=== PATIENT | female | born 1990 | race Caucasian/White ===

== ENCOUNTER 2021-02-03 15:56 | Emergency (ER) | payer OTHER, SELFPAY ==
[2021-02-03] VITALS (20 sets, daily range): BP systolic 119–155; BP diastolic 68–112; PULSE 95–125; RESP 10–23; TEMP 36.2; O2SAT 93–100
--- NOTE | ~2021-02-03 | CT_ITS ---
EXAMINATION: CTA chest PE protocol DATE: 02/03/2021 20:30 INDICATION: Chest pain. Tachycardia. Dyspnea. TECHNIQUE: Computed tomography angiography (CTA) of the chest was performed with 100 mL Omnipaque-350 intravenous contrast timed to evaluate the pulmonary arteries. Coronal maximum intensity projection 3D-reconstructions were created by the technologist. Automated exposure control and iterative reconst ruction technique were employed. Exam dose: 406.72 mGy-cm total exam DLP. COMPARISON: 02/03/2021 2 view chest FINDINGS: There is moderate opacification the pulmonary arteries and no evidence of pulmonary embolis m. No thoracic aortic aneurysm or dissection. No hilar or mediastinal mass lesion or lymphadenopathy. Normal heart size. No pericardial or pleural effusion. Approximately 4.5 mm nodule in the middle lobe (series 4 image 52). No other pulmonary mass lesion is noted. No pulmonary infiltrate or consolidation. Small sliding hiatal hernia. Diffuse hepatic steatosis. Normal morphology of the adrenal glands. IMPRESSION: No evidence of pulmonary embolism Nonspecific 4.5 mm middle lobe nodule Diffuse hepatic steatosis Small sliding hiatal hernia Reviewed, dictated and finalized at [facility]. Reviewed, dictated and finalized at [facility].
--- NOTE | ~2021-02-03 | XR_ITS ---
XR chest 2V DATE: 02/03/2021 18:02 INDICATION: Mid chest pain radiating to left side TECHNIQUE: PA and lateral views COMPARISON: 11/19/2018 two-view chest FINDINGS: Normal heart size. No hilar or mediastinal enlargement. No pulmonary infiltrate or consolid ation, pleural effusion or pulmonary vascular congestion or pneumothorax. IMPRESSION: No active cardiopulmonary disease Reviewed, dictated and finalized at [facility].
--- NOTE | 2021-02-03 17:10 | ECG_ITS ---
Measurements Intervals [place] Rate: 127 P: 66 IA: 155 QRS: 64 QRSD: 85 T: 29 QT: 335 QTc: 488 Interpretive Statements SINUS TACHYCARDIA NONSPECIFIC ST & T-WAVE ABNORMALITY- ANT/INF LEADS BASELINE ARTIFACT- I ABNORMAL ECG Electronically Signed On 02-03-2021 20:15:23 CDT by Meng Douglass D.O.
[2021-02-03 17:21] LABS: Basophils Percent Auto 0.3 % (0.2-1.2); Eosinophils Absolute Auto 0.2 K/mm3 (0-0.3); Eosinophils Percent Auto 1.4 % (0-4.4); Hematocrit 45.2 % (37.0-47.0); Hemoglobin 15.2 g/dL (12.0-15.0); Immature Granulocyte Absolute 0.04 K/mm3 (0.00-0.031); Immature Granulocyte Percent A 0.3 % (0-0.5); Lymphocytes Absolute Auto 3.27 K/mm3 (0.9-3.2); Lymphocytes Percent Auto 26.1 % (18.3-44.2); Mean Corpuscular HGB Conc 33.6 g/dl (32-36); Mean Corpuscular Hemoglobin 32.4 pg (26-34); Mean Corpuscular Volume 96.4 fl (80-100); Mean Platelet Volume 9.7 fl (7.4-10.4); Monocytes Absolute Auto 0.7 K/mm3 (0.1-0.6); Monocytes Percent Auto 5.4 % (2.6-8.5); Neutrophils Absolute Auto 8.3 K/mm3 (1.3-6.7); Neutrophils Percent Auto 66.5 % (45.5-73.1); Platelet Count Result 249 k/mm3 (150-375); Red Blood Count 4.69 M/mm3 (4.2-5.4); Red Cell Distribution Width 12.5 % (11.5-14.5); White Blood Count 12.5 K/mm3 (4.5-10.0)
[2021-02-03 17:31] LABS: INR 0.9; Partial Thromboplastin Time 28.8 SECONDS (22.3-36.8); Prothrombin Time 12.7 Seconds (11.1-14.7)
[2021-02-03 17:42] LABS: Anion Gap 9 mmol/L (8-16); Blood Urea Nitrogen 14 mg/dL (7-17); Calcium 9.6 mg/dL (8.4-10.2); Carbon Dioxide 28 mmol/L (22-30); Chloride 105 mmol/L (98-107); Estimated CRCL calculation 107 ml/min; Estimated Glomerular Filt Rate > 60; Glucose 129 mg/dL (65-105); Sodium 142 mmol/L (137-145)
[2021-02-03 17:54] LABS: Troponin I < 0.012 ng/mL (0.000-0.034)
[2021-02-03 19:43] LABS: D Dimer 0.27 ug/mL (<0.48)
[2021-02-03 19:45] LABS: Alanine Aminotransferase 77 U/L (4-35); Albumin Level 4.2 g/dL (3.5-5.1); Alkaline Phosphatase 81 U/L (38-126); Aspartate Amino Transferase 46 U/L (14-36); Bilirubin,Total 0.2 mg/dL (0.2-1.3); Lipase 68 U/L (23-300)
[2021-02-03 19:57] LABS: Troponin I < 0.012 ng/mL (0.000-0.034)
--- NOTE | 2021-02-03 20:05 | ED.GENADULT ---
HPI - General Adult General Chief complaint: Chest Pain Stated complaint: chest pain onset 2 days ago Time Seen by Provider: 02/03/21 19:19 History of Present Illness HPI narrative: Patient a 31-year-old female who presents the emergency department with chief complaint of chest pain. The patient reports that started on Monday states she is had some midsternal chest discomfort and then that radiates to her upper chest. Patient states the pain is worse with inspiration and improved with rest patient reports her heart was beating a little fast as well. The patient denies fever denies chills denies cough Related Data Allergies Allergy/AdvReac Type Severity Reaction Status Date / Time No Known Allergies Allergy Unverified 02/03/21 14:43 Review of Systems Review of Systems: Narrative: A 10 system review of systems was completed on the patient and is negative except for what is stated in the HPI. Nursing and ancillary documentation was reviewed. [facility] Past Medical History Medical History (Updated 02/03/21 @ 23:34 by Pedro Joy MD) Adult hypothyroidism Anxiety Mild recurrent major depression Sleep apnea with cognitive complaints Family History Family History Other Family history of malignant neoplasm of kidney Hypertension Social History Social History Smoking status: Never smoker Alcohol intake: never Gender identity (if verbalized by the patient): Female Exam Narrative: Exam Narrative: GENERAL: Well-appearing, well-nourished, and in no acute distress. HEAD: Normocephalic, atraumatic. EYES: PERRLA and EOMI. ENT: Nares clear, no rhinorrhea or epistaxis. Mucous membranes moist. NECK: Supple. CHEST: Clear to auscultation. No respiratory distress. HEART: Regular rate and rhythm. No murmur heard. Normal peripheral pulses. ABDOMEN: Soft, nontender, nondistended, normal active bowel sounds. EXTREMITIES: Normal range of motion. No edema. SKIN: Warm, dry, no rash. NEURO: No focal deficits. Alert and oriented x3. PSYCH: Normal mood and affect. Course Vital Signs Vital signs: Vital Signs Temperature 36.2 C L 02/03/21 17:05 Pulse Rate 125 H 02/03/21 17:05 Respiratory Rate 18 02/03/21 17:05 Blood Pressure 125/84 02/03/21 17:05 Pulse Oximetry 97 02/03/21 17:05 Temperature 36.2 C L 02/03/21 17:05 Pulse Rate 102 H 02/03/21 22:15 Respiratory Rate 12 02/03/21 22:15 Blood Pressure 138/68 02/03/21 22:15 Pulse Oximetry 95 02/03/21 22:15 Medical Decision Making Vital Signs Vital Signs: Vital Signs Temperature 36.2 C L 02/03/21 17:05 Pulse Rate 125 H 02/03/21 17:05 Respiratory Rate 18 02/03/21 17:05 Blood Pressure 125/84 02/03/21 17:05 Pulse Oximetry 97 02/03/21 17:05 Temperature 36.2 C L 02/03/21 17:05 Pulse Rate 102 H 02/03/21 22:15 Respiratory Rate 12 02/03/21 22:15 Blood Pressure 138/68 02/03/21 22:15 Pulse Oximetry 95 02/03/21 22:15 Lab Data Result diagrams: 02/03/21 17:13 02/03/21 17:13 Labs: Lab Results 02/03/21 02/03/21 02/03/21 Range/Units 17:12 17:13 17:13 WBC 12.5 H (4.5-10.0) K/mm3 RBC 4.69 (4.2-5.4) M/mm3 Hgb 15.2 H (12.0-15.0) g/dL Hct 45.2 (37.0-47.0) % MCV 96.4 (80-100) fl MCH 32.4 (26-34) pg MCHC 33.6 (32-36) g/dl RDW 12.5 (11.5-14.5) % Plt Count 249 (150-375) k/mm3 MPV 9.7 (7.4-10.4) fl Immature Gran % (Auto) 0.3 (0-0.5) % Neut % (Auto) 66.5 (45.5-73.1) % Lymph % (Auto) 26.1 (18.3-44.2) % [place] % (Auto) 5.4 (2.6-8.5) % Eos % (Auto) 1.4 (0-4.4) % Baso % (Auto) 0.3 (0.2-1.2) % Lymph # (Auto) 3.27 H (0.9-3.2) K/mm3 [place]le # (Auto) 0.7 H (0.1-0.6) K/mm3 Eos # (Auto) 0.2 (0-0.3) K/mm3 Baso # (Auto) 0.0 (0.0-0.1) K/mm3 Abs Immat Gran (auto) 0.04 H
[2021-02-03] MEDS: MORPHINE SULFATE (*CRX) 4 MG/ML INJ IV PUSH ×2 (20:08→21:25)
--- NOTE | 2021-02-03 20:08 | PC.NURSE ---
called Mitch carrillo, added on 2006
[2021-02-03] MEDS: SODIUM CHLORIDE 0.9% IV 1,000 ML 999 ML IV CONT (20:09)
[2021-02-03 20:27] LABS: Add Urine Microscopic? YES; Appearance Urine Cloudy (Clear); Bacteria Urine Trace /hpf; Bilirubin Urine Negative (Negative); Blood Urine Negative (Negative); Color Urine Yellow (Yellow); Glucose Urine UA Negative (Negative); Ketones Urine Negative (Negative); Leukocyte Esterase Ur Trace LEU/UL (Negative); Mucus Urine Rare /lpf; Nitrate Urine Negative (Negative); Protein Urine 1+ mg/dL (Negative); RBC Urine 0-2 /hpf (0-2); Specific Grav Ur 1.024 (1.001-1.035); Squamous Epithelial Cell Urine Many /hpf (Few); Urobilinogen Urine Negative mg/dL (<2.0); WBC Urine 0-3 /hpf
[2021-02-03 20:29] LABS: NT Pro B Type Natriuretic Pept 21 PG/ML (5-100)
[2021-02-03] MEDS: BELLADONNA ALK/PHENOB ELIX 10 ML, MAG HYDROX/ALUMINUM HYD/SIMETH 30 ML, LIDOCAINE HCL 2... PO (22:15)
[2021-02-03] MEDS: LORazepam INJ (*CRX) 2 MG/ML VIAL 1 MG IV PUSH ×2 (22:33→23:50)
== END 2021-02-03 23:50 | disposition home or self-care (01) ==
PROVIDERS: General Practice; Physician Assistant; Emergency Provider Emergency Medicine; PCP Nurse Practitioner
DX: E03.9 Hypothyroidism, unspecified (principal); G47.30 Sleep apnea, unspecified; R07.89 Other chest pain; R00.0 Tachycardia, unspecified; R94.31 Abnormal electrocardiogram [ECG] [EKG]
CPT/HCPCS: 36415; 71046; 71275; 80048; 80076; 81001; 81025; 83690; 83880; 84484; 85025; 85380; 85610; 85730; 93005; 96361; 96374; 96375; 96376; 99284; A9270; J2060; J2270; J7030; Q9967